=== PATIENT | female | born 1945 ===

== ENCOUNTER 2020-03-20 01:00 | Day surgery (SDC) | payer MEDICARE ==
[2020-03-20 12:06] VITALS: BP 174/85
[2020-03-20] MEDS ORDERED: APRACLONIDINE 1% OPHTH SOLN DROPERETTE ONE (12:28)
[2020-03-20] MEDS ORDERED: TROPICAMIDE 1% OPHTH SOLN 3 ML ONE (12:28)
[2020-03-20] MEDS ORDERED: PHENYLEPHRINE 10% OPHTH SOLN 5 ML ONE (12:28)
[2020-03-20] MEDS ORDERED: PILOCARPINE 4% OPHTH SOLN 15 ML ONE (12:34)
[2020-03-20] MEDS ORDERED: TETRACAINE 0.5% OPHTH SOLN 4ML ONE (12:47)
[2020-03-20] MEDS ORDERED: APRACLONIDINE 1% OPHTH SOLN DROPERETTE OD ONE (13:01)
[2020-03-20] MEDS ORDERED: PILOCARPINE 4% OPHTH SOLN 15 ML OD ONE (13:02)
[2020-03-20] MEDS ORDERED: MINERAL OIL Light (Sterile) 10 ML VIAL TP ONE (13:16)
[2020-03-20] MEDS ORDERED: HYDROXYPROPYLMETHYLCELLULOSE 2.5% OPHTH SOLN 15 ML ONE ×2 (13:18→13:20)
[2020-03-20] MEDS ORDERED: TETRACAINE 0.5% OPHTH SOLN 4ML OD ONE (13:28)
[2020-03-20] MEDS ORDERED: HYDROXYPROPYLMETHYLCELLULOSE 2.5% OPHTH SOLN 15 ML OD ONE (13:29)
== END 2020-03-20 01:01 | disposition home or self-care (01) ==
LOC: OR 01:00
PROVIDERS: ATTEND Ophthalmology
DX: H40.20X0 Unspecified primary angle-closure glaucoma, stage unspecified (principal); H26.491 Other secondary cataract, right eye; G43.909 Migraine, unspecified, not intractable, without status migrainosus; I10 Essential (primary) hypertension; J45.909 Unspecified asthma, uncomplicated; K21.9 Gastro-esophageal reflux disease without esophagitis; D64.9 Anemia, unspecified; Z98.51 Tubal ligation status; Z72.89 Other problems related to lifestyle; Z87.891 Personal history of nicotine dependence; Z79.899 Other long term (current) drug therapy; Z79.82 Long term (current) use of aspirin; Z98.49 Cataract extraction status, unspecified eye; Z98.890 Other specified postprocedural states